=== PATIENT | female | born 1985 | race Two or more races ===

== ENCOUNTER → 2021-03-09 07:33 | Outpatient (CLI) | payer OTHER | END | disposition home or self-care (01) | LOC: LAB 07:33 | PROVIDERS: ATTEND General Practice | DX: E03.8 Other specified hypothyroidism (principal); B96.1 Klebsiella pneumoniae [K. pneumoniae] as the cause of diseases classified elsewhere; R70.0 Elevated erythrocyte sedimentation rate; E11.9 Type 2 diabetes mellitus without complications; E28.8 Other ovarian dysfunction; I10 Essential (primary) hypertension; E88.1 Lipodystrophy, not elsewhere classified; E34.8 Other specified endocrine disorders; E55.9 Vitamin D deficiency, unspecified; D58.8 Other specified hereditary hemolytic anemias; Z12.11 Encounter for screening for malignant neoplasm of colon; R97.8 Other abnormal tumor markers; N39.0 Urinary tract infection, site not specified; E78.49 Other hyperlipidemia; N95.1 Menopausal and female climacteric states; Z85.07 Personal history of malignant neoplasm of pancreas; D50.8 Other iron deficiency anemias; Z80.1 Family history of malignant neoplasm of trachea, bronchus and lung; E04.2 Nontoxic multinodular goiter; M06.4 Inflammatory polyarthropathy; A64 Unspecified sexually transmitted disease; R19.5 Other fecal abnormalities; R79.82 Elevated C-reactive protein (CRP); D68.8 Other specified coagulation defects; R78.89 Finding of other specified substances, not normally found in blood; D82.4 Hyperimmunoglobulin E [IgE] syndrome; B17.8 Other specified acute viral hepatitis; Z11.4 Encounter for screening for human immunodeficiency virus [HIV]; K75.4 Autoimmune hepatitis ==

== ENCOUNTER 2021-03-09 08:16 | Outpatient (CLI) | payer OTHER | END 2021-03-09 08:24 | disposition home or self-care (01) | LOC: MAMO-SONO 08:16 | PROVIDERS: ATTEND General Practice | DX: D24.1 Benign neoplasm of right breast (principal); D24.2 Benign neoplasm of left breast; Z12.31 Encounter for screening mammogram for malignant neoplasm of breast; N64.59 Other signs and symptoms in breast; E03.8 Other specified hypothyroidism ==

== ENCOUNTER 2022-04-15 07:06 | Outpatient (CLI) | payer OTHER | END 2022-04-15 13:46 | disposition home or self-care (01) | LOC: LAB 07:06 | PROVIDERS: ATTEND General Practice | DX: I11.9 Hypertensive heart disease without heart failure (principal) ==

== ENCOUNTER 2022-04-15 07:33 | Outpatient (CLI) | payer OTHER | END 2022-04-15 07:48 | disposition home or self-care (01) | LOC: RAD 07:33 | PROVIDERS: ATTEND General Practice | DX: N60.11 Diffuse cystic mastopathy of right breast (principal); M19.91 Primary osteoarthritis, unspecified site; E04.1 Nontoxic single thyroid nodule ==

== ENCOUNTER 2022-04-17 07:33 | Outpatient (CLI) | payer OTHER | END 2022-04-17 07:39 | disposition home or self-care (01) | LOC: LAB 07:33 | PROVIDERS: ATTEND General Practice | DX: E78.00 Pure hypercholesterolemia, unspecified (principal); I11.9 Hypertensive heart disease without heart failure; D69.6 Thrombocytopenia, unspecified; E11.9 Type 2 diabetes mellitus without complications; N30.00 Acute cystitis without hematuria; E03.9 Hypothyroidism, unspecified; E55.9 Vitamin D deficiency, unspecified; E11.65 Type 2 diabetes mellitus with hyperglycemia ==

== ENCOUNTER 2024-07-05 21:27 | Emergency (ER) | payer OTHER ==
[~2024-07-05] VITALS: Ht 157.5 cm; Wt 117.9 kg
[2024-07-05] MEDS ORDERED: LEVOTHYROXINE100 MC1 PO (21:55)
[2024-07-05] MEDS ORDERED: DICY20TA PO (21:55)
[2024-07-05] MEDS ORDERED: SYMBICORT 16010.2 GM IH (21:55)
[2024-07-05] MEDS ORDERED: ZYRTEC10 MG PO (21:55)
[2024-07-05] MEDS ORDERED: VASOTEC2.5 MG PO (21:55)
[2024-07-05] MEDS ORDERED: SINGULAIR10 MG PO (21:55)
[2024-07-05] MEDS ORDERED: 0.9 % SODIUM CHLORIDE 1,000 ML IV STA (23:23)
[2024-07-05] MEDS ORDERED: ONDANSETRON HCL 2 MG/ML VIAL IV ONE (23:30)
[2024-07-05] MEDS ORDERED: FAMOTIDINE/PF 20 MG/2 ML VIAL IV ONE (23:30)
[2024-07-05 23:59] LABS: HEMATOCRIT 36.3 % (36.0-45.00); HEMOGLOBIN 11.8 g/dL (12.0-15.00); MEAN CELL VOLUME 81.3 fL (80.00-100.00); MEAN CORPUSCULAR HEMOGLOBIN 26.4 pg (27.00-32.0); MEAN CORPUSCULAR HGB CONC 32.5 g/dl (32.0-36.0); PLATELET COUNT 406 K/uL (150-450); RED BLOOD COUNT 4.46 M/uL (4.00-6.00); RED CELL DISTRIBUTION WIDTH 16.8 % (11.5-14.5)
[2024-07-06 00:22] LABS: INR 1.12; PARTIAL THROMBOPLASTIN TIME 29.1 SECONDS (22.0-34.0); PROTHROMBIN TIME 12.1 SECONDS (9.0-11.5)
[2024-07-06 00:41] LABS: ALBUMIN 3.4 gm/dL (3.4-5.0); BILIRUBIN TOTAL 0.64 mg/dL (0.3-1.2); CALCIUM 8.8 mg/dL (8.5-10.1); CREATININE SERUM 0.85 mg/dL (0.55-1.02); GFR 73.7; GLOBULINA 2.8 G/DL (2.4-3.5); POTASSIUM 4.15 mEq/L (3.5-5.1); TOTAL PROTEIN 6.2 gm/dL (6.4-8.2)
[2024-07-06 00:44] LABS: PH,URINE 6.5 (5.0-8.0); URINE APPEARANCE Clear; URINE BILIRRUBIN Negative (NEGATIVE); URINE BLOOD Negative; URINE COLOR Yellow; URINE GLUCOSE Negative (NEGATIVE); URINE KETONE Trace (NEGATIVE); URINE LEUKOCYTE Small; URINE NITRATE Negative; URINE PROTEIN Negative (NEGATIVE)
[2024-07-06 00:47] LABS: URINE BACTERIA 62.4 uL (0.0-1933); URINE EPITHELIAL CELLS 13.9 uL (0.0-38.8); URINE RBC 88.8 uL (0.0-20.8); URINE WBC 18.8 uL (0.0-23.2)
[2024-07-06] MEDS ORDERED: KETOROLAC TROMETHAMINE 30 MG VIAL IV STA (02:37)
[2024-07-06] MEDS ORDERED: MECLIZINE HCL 25 MG TABLET PO STA (02:37)
[2024-07-06] MEDS ORDERED: METOCLOPRAMIDE HCL 5 MG/ML VIAL IM STA (02:38)
== END 2024-07-06 03:37 | disposition home or self-care (01) ==
LOC: ER 21:30
PROVIDERS: Emergency Medicine
DX: K52.9 Noninfective gastroenteritis and colitis, unspecified (principal); H81.10 Benign paroxysmal vertigo, unspecified ear; Z91.018 Allergy to other foods

== ENCOUNTER → 2024-07-21 08:29 | Outpatient (CLI) | payer OTHER ==
[~2024-07-21 08:29] MED LIST: DICY20TA PO; LEVOTHYROXINE100 MC1 PO; SINGULAIR10 MG PO; SYMBICORT 16010.2 GM IH; VASOTEC2.5 MG PO; ZYRTEC10 MG PO
[2024-07-21 09:31] LABS: PH,URINE 6.5 (5.0-8.0); URINE APPEARANCE Clear; URINE BILIRRUBIN Negative (NEGATIVE); URINE BLOOD Negative; URINE COLOR Yellow; URINE GLUCOSE Negative (NEGATIVE); URINE KETONE Negative (NEGATIVE); URINE LEUKOCYTE Small; URINE NITRATE Negative; URINE PROTEIN Negative (NEGATIVE); URINE UROBILINOGEN 0.2 E.U./dl
[2024-07-21 09:36] LABS: URINE BACTERIA 482.1 uL (0.0-1933); URINE EPITHELIAL CELLS 46.3 uL (0.0-38.8); URINE RBC 13.5 uL (0.0-20.8); URINE WBC 65.5 uL (0.0-23.2)
[2024-07-21 09:38] LABS: HEMATOCRIT 37.2 % (36.0-45.00); HEMOGLOBIN 12.1 g/dL (12.0-15.00); MEAN CELL VOLUME 81.2 fL (80.00-100.00); MEAN CORPUSCULAR HEMOGLOBIN 26.5 pg (27.00-32.0); MEAN CORPUSCULAR HGB CONC 32.6 g/dl (32.0-36.0); PLATELET COUNT 387 K/uL (150-450); RED BLOOD COUNT 4.59 M/uL (4.00-6.00); RED CELL DISTRIBUTION WIDTH 16.7 % (11.5-14.5)
[2024-07-21 09:41] LABS: ERYTHROCYTE SEDIMENTATION RATE 30 mm/hr
[2024-07-21 10:12] LABS: URINE CAST 0.14 uL (0.0-1.40)
[2024-07-21 10:16] LABS: ALBUMIN 3.8 gm/dL (3.4-5.0); BILIRUBIN TOTAL 0.42 mg/dL (0.3-1.2); CALCIUM 9.6 mg/dL (8.5-10.1); CHOL HDL RATIO 2.9 (0-5.0); CREATININE SERUM 0.87 mg/dL (0.55-1.02); GFR 71.75; POTASSIUM 4.56 mEq/L (3.5-5.1); T4 TOTAL 12.33 UG/DL (4.8-13.9); TOTAL PROTEIN 6.8 gm/dL (6.4-8.2); TSH 0.904 uIU/mL (0.358-3.74)
== END | disposition home or self-care (01) ==
LOC: LAB 08:29
PROVIDERS: ATTEND General Practice
DX: E78.00 Pure hypercholesterolemia, unspecified (principal); I11.9 Hypertensive heart disease without heart failure; D69.6 Thrombocytopenia, unspecified; E11.9 Type 2 diabetes mellitus without complications; N30.00 Acute cystitis without hematuria; E03.9 Hypothyroidism, unspecified; E09.9 Drug or chemical induced diabetes mellitus without complications; M32.10 Systemic lupus erythematosus, organ or system involvement unspecified; D53.9 Nutritional anemia, unspecified